=== PATIENT | male | born 1970 | race Caucasian/White ===

== ENCOUNTER 2017-03-13 09:02 | Emergency (ER) | payer OTHER ==
[~2017-03-13] VITALS: Ht 172.7 cm; Wt 104.3 kg
[~2017-03-13 09:02] MED LIST: ALLEGRA ALLERG180 MG PO; COLESTIPOL HYDRO1 GM PO; FLOMAX 0.4MG C0.4 MG PO; NEXIUM40 MG PO; NORCO 325 MG-51 TAB PO
[2017-03-13] MEDS ORDERED: BROMFED DM COU118 ML PO (09:40)
[2017-03-13] MEDS ORDERED: ZITHROMAX Z PA250 MG PO (09:40)
[2017-03-13] MEDS ORDERED: MEDROL 4MG. DOSE4 MG PO (09:40)
[2017-03-13] MEDS ORDERED: FLONASE 50 MCG16 GM (09:40)
--- NOTE | 2017-03-13 09:40 | [facility]gent [facility] Report ---
History of Present Issue Date/Time Seen by Provider 03/13/17924 Visit Reason Pt arrived:Walked Presenting Problem:PT C/O OF RUNNY NOSE, COUGH, AND HEAD AND CHEST CONGESTION Location if Accident: Onset of symptoms date/time:03/10/1701/18/1200 or onset unknown for: Have you (or family members/close friends) recently traveled outside the [place]? N If Yes, where/when: Have you had exposure to infectious disease within the past month? TB? Other? Specify: Patient complaining of cough, runny nose, chest congestion and over all feeling horrible. States that sometimes he is blowing out yellowish green and sometimes he is not able to blow out anything at all. States that he has pressure in his ears and his throat is sore. States that he is coughing up brown phlem and he thinks that is drainage from his nose going down the back of his throat. ALLERGIES Coded Allergies: MILK (FOOD) (DIARRHEA 01/13/16) Uncoded Allergies: SOY BEANS (01/13/16) Home Medications Active Scripts TAMSULOSIN HCL (Flomax 0.4MG) 0.4 MG PO DAILY #10 CAP Prov: 01/11/16 HYDROCODONE/ACETAMINOPHEN ([place] 5-325 Tablet) 1 TAB PO Q6HP PRN pain #10 TAB Prov: 01/11/16 Reported Medications COLESTIPOL HCL (Colestipol HCl) 1 GM PO BID #60 FEXOFENADINE HCL (Rosie Allergy) 180 MG PO DAILY Esomeprazole Magnesium (Nexium 40MG Cap) 40 MG PO DAILY History Medical History General CAD? No Angina: No MA: No Hypertension? No Hyperlipidemia? No CHF? No DVT? No PE? No COPD? No Asthma? No Anemia? No GERD? No Gastric ulcers? No GI Bleed? No Hernia? No Thyroid Problems? No Hypothyroidism? No CVA? No Seizures? No Diabetes? No Renal Insuffiency? No UTI? No Stones? No BPH? No GB Disease: Yes Nephritic Syndrome? No Asplenia? No Hepatitis? No Sickle Cell Disease? No Arthritis? No Migraines? No Cataracts? No Glaucoma? No MRSA? No HIV? No TB? No Anxiety? No Depression? No Cancer? No More? 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 Respiratory cough Physical Exam Vital Signs Vital Signs Date Time Temp Pulse Resp B/P Pulse O2 O2 Flow FiO2 Ox Delivery Rate 03/13 0916 97.9 66 18 129/76 98 General Appearance Patient appears ill, sitting on exam table cheeks flush Ear, Nose, Throat sinus pain/drainage, nasal congestion, Throat red, irriated drainage noted in back of throat, sinus tenderness noted maxillary sinuses nares red irritated yellowish green drainage noted Respiratory Status Yes: trachea midline, chest symmetrical, non tender chest. No: respiratory distress. Lung Sounds bilateral: normal breath sounds, lungs clear. Cardiovascular normal exam, regular rate/rhythm, no peripheral edema, no gallop Neurologic alert, lead front desk agent II-XII nml as tested, normal exam, no motor/sensory deficits, oriented x 3 Medical Decision Making LABS/Meds/Orders Pt receiving controlled substance in ED? No Departure Departure Time of Disposition 09 Disposition DC Home or Self Care(routine) Clinical Impression Primary Impression: Upper respiratory infection Qualifiers: URI type: unspecified URI Qualified Code: J06.9 - Acute upper respiratory infection, unspecified Condition STABLE Referrals Amado MENA,David (Family) Patient Instructions Cough, DI for Nasal Congestion, Sore Throat Additional Instructions * Monitor Temp. Tylenol and/or Ibuprofen as needed. ER if fever is no less than 101 despite alternating Tylenol and Ibuprofen * Encourage fluids, water, Gatorade, powerade, pedialyte if infant/toddler/or child * Warm salt water gargles for throat irritation *Warm fluids *Sore throat lozenges *Sleep elevated *humidifier or vaporizer *Flonase 2 sprays each nostril daily but may take 2-3 days to notice improvement with it *Bromfed may cause drowsiness. Know how it effect you or your child. Before driving, caring for small children or sending your child to school Follow up IMMEDIATELY for new or worsening of symptoms OR no noticeable improvement over the next 48-72 hours. 911 immediately for any life threatening symptoms such as chest pain or difficulty breathing Discharge Counseling Counseled pt/family regarding diagnosis, medications/RX, home care, follow up needs Prescriptions Current Visit Scripts Azithromycin (Zithromycin (Z-ALEJANDRO) 250MG Tab) 250 MG PO DAILY #6 TAB TAKE TWO (2) TABLETS ON DAY 1, THEN ONE (1) TABLET DAY #2 THRU #5 D-METHORPHAN HB/P-EPD HCL/BPM (Bromfed Dm Cough Syrup) 10 ML PO Q4HP PRN cough #120 SYR Fluticasone Propionate (Flonase 50 Mcg Nasal [place]) 2 SPRAY NA DAILY #1 BOT Methylprednisolone (Medrol Dose Alejandro) 4 MG PO UD #1 ALEJANDRO TAKE DIRECTED ON PACKAGING at 0940
[2017-03-13 09:47] VITALS: BP 129/76
== END 2017-03-13 09:47 | disposition home or self-care (01) ==
LOC: UTC 09:02
DX: J06.9 Acute upper respiratory infection, unspecified (principal); Z87.891 Personal history of nicotine dependence; Z79.899 Other long term (current) drug therapy